=== PATIENT | male | born 1955 | race Caucasian/White ===

== ENCOUNTER 2020-07-31 09:20 | Emergency (ER) | payer OTHER ==
--- NOTE | 2020-07-31 09:30 | PDOC ---
History of Present Illness - General Chief Complaint: Urinary Problem Stated Complaint: URINARY PAIN Time Seen by Provider: 07/31/20 09:30 - History of Present Illness Initial Comments: 07/31/20 09:38 65 M with hx of prostate enlargement presented to the ED with urinary problem. Patient had decreased stream/voiding for the 36 hours. In addition, he complained of mild dysuria, but denies discharge, odor, or any lesions. He is c urrently taking afuzosin but it doesn't appear to work. He denies f/c/n/v/d, chest pain, abdominal pain. PMHX: as in HPI PSHX: laminectomy (20 years ago). Meds: afuzosin Allergies: none Tob: none Etoh: occasional Rec drugs: none PCP: NEHEMIAH GENERAL/CONSTITUTIONAL: No fever or chills. No weakness. HEAD, EYES, EARS, NOSE AND THROAT: No change in vision. No ear pain or discharge. No sore throat. CARDIOVASCULAR: No chest pain or shortness of breath RESPIRATORY: No cough, wheezing, or hemoptysis. GASTROINTESTINAL: No nausea, vomiting, diarrhea or constipation. GENITOURINARY: No dysuria, frequency, +change in urination. MUSCULOSKELETAL: No joint or muscle swelling or pain. No neck or back pain. SKIN: No rash NEUROLOGIC: No headache, vertigo, loss of consciousness, or change in strength/sensation. ENDOCRINE: No increased thirst. No abnormal weight change HEMATOLOGIC/LYMPHATIC: No anemia, easy bleeding, or history of blood clots. ALLERGIC/IMMUNOLOGIC: No hives or skin allergy. PE within normal limit . GENERAL: Awake, alert, and fully oriented, in no acute distress HEAD: No signs of trauma, normocephalic, atraumatic EYES: PERRLA, EOMI, sclera anicteric, conjunctiva clear ENT: Auricles normal inspection, hearing grossly normal, nares patent, oropharynx clear without exudates. Moist mucosa NECK: Normal ROM, supple, no lymphadenopathy, JVD, or masses LUNGS: No distress, speaks full sentences, clear to auscultation bilaterally HEART: Regular rate and rhythm, normal S1 and S2, no murmurs, rubs or gallops, peripheral pulses normal and equal bilaterally. ABDOMEN: Soft, nontender, normoactive bowel sounds. No guarding, no rebound. No masses : normal external, no discharge, no pain. EXTREMITIES : Normal inspection, Normal range of motion, no edema. No clubbing or cyanosis. NEUROLOGICAL: Cranial nerves II through XII grossly intact. Normal speech, normal gait, no focal sensorimotor deficits SKIN: Warm, Dry, normal turgor, no rashes or lesions noted Past History - Medical History Allergies/Adverse Reactions: Allergies Allergy/AdvReac Type Severity Reaction Status Date / Time No Known Allergies Allergy Verified 07/31/20 09:24 Home Medications: Ambulatory Orders Alfuzosin HCl [Alfuzosin HCl ER] 10 mg PO HS 07/31/20 Anemia: No Asthma: No Cancer: No Cardiac Disorders: No CVA: No COPD: No CHF: No Dementia: No Diabetes: No GI Disorders: No Disorders: No HTN: No Hypercholesterolemia: No Liver Disease: No Seizures: No Thyroid Disease: No - Surgical History Abdominal Surgery: No Appendectomy: No Cardiac Surgery: No Cholecystectomy: No Lung Surgery: No Neurologic Surgery: No Orthopedic Surgery: Yes (LAMINECTOMY MANY YEARS AGO) - Psycho-Social/Smoking History Smoking Status: No Smoking History: Never smoked Number of Cigarettes Smoked Daily: 0 ED Treatment Course - LABORATORY CBC & Chemistry Diagram: 07/31/20 09:47 07/31/20 09:47 Medical Decision Making - Medical Decision Making 07/31/20 09:49 65 M with hx of prostate enlargement on alfuzosin, with decreased urinary stream, and difficulty voiding for the past 36 hours dx: bladder obstruction due to prostrate enlargement(cancer/polyp),kidney stone, infectious cause Test: CBC, CMP (for BUN/Cr) , UA/UC most likely discharge to PCP and refer to urologist for medication management. 07/31/20 10:49 Blood work came back with no concerning problem. UA is negative. Will discharge with PCP and urologist follow up . Discharge - Discharge Information Problems reviewed: Yes Clinical Impression/Diagnosis: Urinary obstruction, unspecified Condition: Stable Disposition: HOME - Follow up/Referral Referrals: Alex Medina MD [Staff Physician] - Edmundo Adler MD [Staff Physician] - Clayton Linton MD [Staff Physician] - Carlos Suero MD [Staff Physician] - Juancarlos Don MD [Staff Physician] - - Patient Discharge Instructions Patient Printed Discharge Instructions: Benign Prostatic Hyperplasia Additional Instructions: You were seen in the ED for complaints of urinary problem. In the ED you were evaluated with bloodwork and urine analysis Your results were negative There does not appear to be an acute need for immediate hospitalization. You are advised to follow up with your Primary Care Physician and urologist and neprologist within 1 week. You were given a referral to urologist Return to the ED immediately if you experience worsening urinary problems. - Post Discharge Activity
[2020-07-31 09:31] VITALS: BP 142/70; PULSE 80; TEMP 98; BMI 24.0
--- NOTE | 2020-07-31 09:41 | PDOC ---
Attending Attestation - Resident Resident Name: Gómez Daly - ED Attending Attestation I have performed the following: I have examined & evaluated the patient, The case was reviewed & discussed with the resident, I agree w/resident's findings & plan, Exceptions are as noted - HPI HPI: 07/31/20 09:46 [id number] with h/o stage III CKD, BPH, and distant lumbar laminectomy who p/w difficulty urinating, with mild burning on urination. Notes he has previously had CKD and follows with nephrology but states his last renal function tests looked "good". He states he is taking all his medications exactly as prescribed. Denies any abdominal pain, f/c/n/v/d/c, back pain, n/t/w focally, hematuria, strange colors/smells to urine, or other symptoms. - Physicial Exam PE: 08/05/20 04:10 GENERAL: well-appearing, pleasant older adult male, A/Ox4, no distress, answers questions appropriately HEENT: PERRLA, EOMI, moist mucous membranes NECK/BACK: no midline ttp, no spinal step-off or deformity, no hematoma, full R OM, neck supple CARDIOVASCULAR: regular rate/rhythm, no MGR, strong peripheral pulses, capillary refill <2 seconds, extremities wwp, no edema LUNGS/RESPIRATORY: no respiratory distress, CTAB GI/ABDOMEN: nondistended, symmetric [id number], normoactive BS, soft, no ttp, no midline pulsatile masses : no CVA tenderness, no flank ecchymosis, normal external appearance without Deshpande in place MSK/EXTREMITIES: no muscle atrophy, no acute deformity SKIN: warm and dry, no pallor, no jaundice, no rash, no pathologic-appearing bruising, no skin breakdown, no cuts, no lesions NEUROLOGICAL: GCS 15, CN II-XII grossly intact, 5/5 strength proximally and distally, no facial droop - Medical Decision Making 08/05/20 04:10 [id number] with h/o BPH and CKD p/w decreased urination and stated concern for obstruction. Initial Vital Signs Temp Pulse Resp BP Pulse Ox 98 F 80 20 142/70 100 07/31/20 09:20 07/31/20 09:20 07/31/20 09:20 07/31/20 09:20 07/31/20 09:20 Patient is able to give urine sample and urinate in the department without difficulty. Nontender abdomen and no other abnormalities on exam. POCUS without calculatable PVR (decompressed bladder without urine seen). Most likely this is decreased urine production, versus nonemergent effect of BPH. Provider Orders Category Date Time Status CBC WITH DIFFERENTIAL Stat Lab 07/31/20 09:47 Completed COMP METABOLIC PANEL Stat Lab 07/31/20 09:47 Completed UA ([facility] ONLY) Stat Lab 07/31/20 10:07 Completed UC [URINE CULTURE] Stat Micro 07/31/20 10:07 Completed Microbiology Tests 07/31/20 10:07 Urine Culture - Final Urine - Urine Clean Catch NO GROWTH OBTAINED Lab Results WBC 7.0 K/mm3 (4.0-10.8) 07/31/20 09:47 RBC 4.48 M/mm3 (4.00-5.60) 07/31/20 09:47 Hgb 14.7 GM/dl (11.7-16.9) 07/31/20 09:47 Hct 43.2 % (35.4-49) 07/31/20 09:47 MCV 96.3 fl (80-96) H 07/31/20 09:47 MCH 32.9 pg (25.7-33.7) 07/31/20 09:47 MCHC 34.2 g/dl (32.0-35.9) 07/31/20 09:47 RDW 12.4 % (11.9-15.9) 07/31/20 09:47 Plt Count 169 K/MM3 (134-434) 07/31/20 09:47 MPV 8.6 fl (7.5-11.1) 07/31/20 09:47 Absolute Neuts (auto) 2.9 K/mm3 07/31/20 09:47 Neutrophils % 41.6 % (42.8-82.8) L D 07/31/20 09:47 Lymphocytes % 50.2 % (8-40) H D 07/31/20 09:47 Monocytes % 4.9 % (3.8-10.2) 07/31/20 09:47 Eosinophils % 0.4 % (0-4.5) D 07/31/20 09:47 Basophils % 2.9 % (0-2.0) H D 07/31/20 09:47 Sodium 136 mmol/L (136-145) 07/31/20 09:47 Potassium 4.3 mmol/L (3.5-5.1) 07/31/20 09:47 Chloride 102 mmol/L (98-107) 07/31/20 09:47 Carbon Dioxide 26 mmol/L (21-32) 07/31/20 09:47 Anion Gap 8 MMOL/L (8-16) 07/31/20 09:47 BUN 16.0 mg/dl (7-18) 07/31/20 09:47 Creatinine 1.4 mg/dl (0.55-1.3) H 07/31/20 09:47 Est GFR (CKD-EPI)AfAm 59.83 07/31/20 09:47 Est GFR (CKD-EPI)NonAf 51.62 07/31/20 09:47 Random Glucose 132 mg/dl (74-106) H 07/31/20 09:47 Calcium 9.2 mg/dl (8.5-10) 07/31/20 09:47 Total Bilirubin 1.1 mg/dl (0.2-1) H 07/31/20 09:47 AST 24 U/L (15-37) 07/31/20 09:47 ALT 17 U/L (13-61) 07/31/20 09:47 Alkaline Phosphatase 68 U/L (45-117) 07/31/20 09:47 Total Protein 6.6 g/dl (6.4-8.2) 07/31/20 09:47 Albumin 4.3 g/dl (3.4-5.0) 07/31/20 09:47 Urine Color Yellow 07/31/20 10:07 Urine Appearance Clear 07/31/20 10:07 Urine pH 5.0 (4.5-8) 07/31/20 10:07 Urine Protein Negative (NEGATIVE) 07/31/20 10:07 Urine Glucose (UA) Negative (NEGATIVE) 07/31/20 10:07 Urine Ketones Negative (NEGATIVE) 07/31/20 10:07 Urine Blood Negative (NEGATIVE) 07/31/20 10:07 Urine Nitrite Negative (NEGATIVE) 07/31/20 10:07 Urine Bilirubin Negative (NEGATIVE) 07/31/20 10:07 Urine Urobilinogen 0.2 (0.2-1.0) 07/31/20 10:07 Ur Leukocyte Esterase Negative (NEGATIVE) 07/31/20 10:07 Patient has known CKD and only minimal elevation in Cr as expected. Unlikely obstruction, although patient will f/u with his PCP and urologist. Return precautions discussed, dispo per resident note. Discharge - Discharge Information Problems reviewed: Yes Clinical Impression/Diagnosis: Urinary obstruction, unspecified Condition: Stable Disposition: HOME - Admission No - Follow up/Referral Referrals: Alex Medina MD [Staff Physician] - Edmundo Adler MD [Staff Physician] - Clayton Linton MD [Staff Physician] - Carlos Suero MD [Staff Physician] - Juancarlos Don MD [Staff Physician] - - Patient Discharge Instructions Patient Printed Discharge Instructions: Benign Prostatic Hyperplasia Additional Instructions: You were seen in the ED for complaints of urinary problem. In the ED you were evaluated with bloodwork and urine analysis Your results were negative There does not appear to be an acute need for immediate hospitalization. You are advised to follow up with your Primary Care Physician and urologist and neprologist within 1 week. You were given a referral to urologist Return to the ED immediately if you experience worsening urinary problems. - Post Discharge Activity
[2020-07-31 10:02] LABS: BASO % 2.9 % (0-2.0); EOS % 0.4 % (0-4.5); HEMATOCRIT 43.2 % (35.4-49); HEMOGLOBIN 14.7 GM/dl (11.7-16.9); LYMPH % 50.2 % (8-40); MCH 32.9 pg (25.7-33.7); MCHC 34.2 g/dl (32.0-35.9); MEAN CELL VOLUME 96.3 fl (80-96); MEAN PLT VOLUME 8.6 fl (7.5-11.1); MONO % 4.9 % (3.8-10.2); NEUT % 41.6 % (42.8-82.8); PLATELET COUNT 169 K/MM3 (134-434); RBC 4.48 M/mm3 (4.00-5.60); RDW 12.4 % (11.9-15.9)
[2020-07-31 10:10] LABS: ALBUMIN 4.3 g/dl (3.4-5.0); BILIRUBIN,TOTAL 1.1 mg/dl (0.2-1); CALCIUM 9.2 mg/dl (8.5-10); CREATININE 1.4 mg/dl (0.55-1.3); POTASSIUM 4.3 mmol/L (3.5-5.1); TOT PROT 6.6 g/dl (6.4-8.2)
== END 2020-07-31 11:13 | disposition home or self-care (01) ==
LOC: FER 09:20
DX: R33.9 Retention of urine, unspecified (principal)
CPT/HCPCS: 36415; 80053; 81003; 85025; 87086; 99283-25